=== PATIENT | female | born 1990 | race Caucasian/White ===

== ENCOUNTER 2021-01-29 09:16 | Inpatient (IN) ==
[2021-01-29] MEDS ORDERED: Lidocaine 1% 20 ML MDV INFILT PRN (09:21)
[2021-01-29] MEDS ORDERED: Azithromycin 500 MG in 0.9 % Sodium Chloride 250 ML IVPB PRN (09:21)
[2021-01-29] MEDS ORDERED: Metoclopramide 10 MG/2 ML VIAL IVP PRN (09:21)
[2021-01-29] MEDS ORDERED: *HR* Nalbuphine 10 MG/ML AMPUL IV PRN (09:21)
[2021-01-29] MEDS ORDERED: Naloxone 0.4 MG/ML INJ IVP PRN (09:21)
[2021-01-29] MEDS ORDERED: Famotidine 20 MG/2 ML VIAL IVP PRN (09:21)
[2021-01-29] MEDS ORDERED: Ondansetron 4 MG/2 ML VIAL IVP PRN (09:21)
[2021-01-29] MEDS ORDERED: Oxytocin 20 units/ LR 1000 mL 20 UNIT/1,000 ML BAG IVC SCH ×2 (09:30→16:54)
[2021-01-29] MEDS: Ringers Solution, Lactated 1,000 ML IVC SCH ×2 (10:06→11:10)
[2021-01-29] MEDS ORDERED: Ropivacaine/PF 0.2% 20 ML VIAL ONE (10:36)
[2021-01-29] MEDS ORDERED: *HR* FentaNYL (PF) 100 MCG/2 ML VIAL ONE (10:36)
[2021-01-29 10:39] LABS: Basophils % 0.3 %; Eosinophils # 0.1 K/mcL (0.0-0.6); Eosinophils % 0.6 %; Hematocrit 36.3 % (35.3-44.9); Hemoglobin 12.6 g/dL (11.5-15.4); Immature Granulocytes % 0.5 % (0-4); Lymphocytes # 1.9 K/mcL (0.6-4.6); Lymphocytes % 13.7 %; Mean Corpuscular HGB Conc 34.7 g/dL (31.6-35.5); Mean Corpuscular Hemoglobin 29.4 pg (28.0-33.3); Mean Corpuscular Volume 84.8 fL (83.0-100.0); Mean Platelet Volume 11.3 fL (9.4-12.4); Monocytes # 0.7 K/mcL (0.0-1.3); Monocytes % 4.7 %; Neutrophils # 11.1 K/mcL (1.6-8.9); Platelet Count 216 K/mcL (140-400); Red Blood Count 4.28 M/mcL (3.82-4.97); Red Cell Distribution Width 13.1 % (11.5-14.5); Segmented Neutrophils % 80.2 %; White Blood Count 13.9 K/mcL (4.3-11.1)
[2021-01-29] MEDS ORDERED: Epidural Premix (fent/bupiv) 110 ML EP ONE (10:54)
[2021-01-29 11:16] LABS: Influenza A PCR Negative (Negative); Influenza B PCR Negative (Negative); Resp. Syncytial Virus PCR Negative (Negative); SARS-CoV-2 by PCR (In House) Negative (Negative)
[2021-01-29 11:18] LABS: Creatinine,Urine 176 mg/dL
[2021-01-29] MEDS ORDERED: EPHEDrine 50 MG/ML VIAL IVP PRN (11:18)
[2021-01-29] MEDS ORDERED: Epidural Premix (fent/bupiv) 110 ML EP SCH (11:30)
[2021-01-29 11:31] LABS: Alanine Aminotransferase 13 Units/L (7-52); Aspartate Amino Transferase 22 Units/L (13-39); BUN/Creatinine Ratio 10 (6-26); Blood Urea Nitrogen 7 mg/dL (6-20); Lactate Dehydrogenase 202 Units/L (140-271); Uric Acid 5.8 mg/dL (2.3-7.6); eGFR For African Americans > 60 (> 60); eGFR For Non-African Americans > 60 (> 60)
[2021-01-29 11:32] LABS: Amphetamine Screen,Urine Negative ng/mL (Cutoff=1000); Barbiturate Screen,Urine Negative ng/mL (Cutoff=200); Benzodiazepines Screen,Urine Negative ng/mL (Cutoff=200); Cannabinoid Screen,Urine Negative ng/mL (Cutoff = 50); Cocaine Screen,Urine Negative ng/mL (Cutoff= 300); Opiate Screen,Urine Negative ng/mL (Cutoff=300); Phencyclidine Screen,Urine Negative ng/mL (Cutoff=25)
[2021-01-29] MEDS ORDERED: Oxytocin 20 units/ LR 1000 mL 20 UNIT/1,000 ML BAG IVC ONE (16:54)
[2021-01-29] MEDS ORDERED: Lanolin 7 G OINT...G. TP PRN (16:54)
[2021-01-29] MEDS ORDERED: Acetaminophen 325 MG TABLET PO PRN (16:54)
[2021-01-29] MEDS ORDERED: Benzocaine/Menthol 56 GM AEROSOL SPRAY TP PRN (16:54)
[2021-01-29] MEDS: Ibuprofen 600 MG TABLET PO PRN (19:43)
[2021-01-30] MEDS: Ibuprofen 600 MG TABLET PO PRN ×2 (05:05→11:42)
[2021-01-30 07:58] VITALS: PULSE 62
[2021-01-30 08:01] VITALS: BP 130/89; TEMP 98.1; O2SAT 98
[2021-01-30] MEDS ORDERED: Prenatal Vit/FA 1 EACH TABLET PO SCH (09:00)
[2021-01-30 13:00] LABS: Basophils % 0.2 %; Eosinophils # 0.1 K/mcL (0.0-0.6); Hematocrit 30.7 % (35.3-44.9); Immature Granulocytes % 0.5 % (0-4); Lymphocytes # 1.5 K/mcL (0.6-4.6); Lymphocytes % 12.5 %; Mean Corpuscular HGB Conc 33.9 g/dL (31.6-35.5); Mean Corpuscular Hemoglobin 29.6 pg (28.0-33.3); Mean Corpuscular Volume 87.5 fL (83.0-100.0); Mean Platelet Volume 11.6 fL (9.4-12.4); Monocytes # 0.6 K/mcL (0.0-1.3); Monocytes % 5.2 %; Neutrophils # 9.8 K/mcL (1.6-8.9); Platelet Count 200 K/mcL (140-400); Red Blood Count 3.51 M/mcL (3.82-4.97); Red Cell Distribution Width 13.2 % (11.5-14.5); Segmented Neutrophils % 80.6 %; White Blood Count 12.1 K/mcL (4.3-11.1)
[2021-01-30 13:04] LABS: Hemoglobin 10.4 g/dL (11.5-15.4)
== END 2021-01-30 16:22 | disposition home or self-care (01) | DRG 560 ==
LOC: 1NENULAB → 1NENUOBS 17:29
PROVIDERS: ADMIT Advanced Practice Midwife; ATTEND Advanced Practice Midwife

== ENCOUNTER 2021-12-06 09:28 | Observation (INO) ==
[2021-12-06] MEDS ORDERED: Ringers Solution, Lactated 1,000 ML IVC SCH (09:45)
[2021-12-06] MEDS ORDERED: Doxycycline 200 MG in 0.9 % Sodium Chloride 250 ML IVPB ONE (10:30)
[2021-12-06 10:39] LABS: Hematocrit 37.4 % (35.3-44.9); Hemoglobin 12.9 g/dL (11.5-15.4); Mean Corpuscular HGB Conc 34.5 g/dL (31.6-35.5); Mean Corpuscular Hemoglobin 28.8 pg (28.0-33.3); Mean Corpuscular Volume 83.5 fL (83.0-100.0); Mean Platelet Volume 10.2 fL (9.4-12.4); Platelet Count 260 K/mcL (140-400); Red Blood Count 4.48 M/mcL (3.82-4.97); Red Cell Distribution Width 12.4 % (11.5-14.5)
[2021-12-06] MEDS ORDERED: *HR* Propofol 200 MG/20 ML VIAL IVP ONE (12:51)
[2021-12-06] MEDS ORDERED: *HR* HYDROmorphone PF 0.5 MG/0.5 ML SYRINGE IVP PRN (12:51)
[2021-12-06] MEDS ORDERED: *HR* OxyCODONE Immed Rel 5 MG TABLET PO PRN (12:51)
[2021-12-06] MEDS ORDERED: *HR* Midazolam HCl 2 MG/2 ML VIAL ONE (12:51)
[2021-12-06] MEDS ORDERED: Ondansetron 4 MG/2 ML VIAL IVP PRN (12:51)
[2021-12-06] MEDS ORDERED: *HR* FentaNYL (PF) 100 MCG/2 ML VIAL ONE (12:51)
[2021-12-06] MEDS ORDERED: Ondansetron 4 MG/2 ML VIAL ONE (12:54)
[2021-12-06] MEDS ORDERED: Lidocaine -MPF 2% 5 ML VIAL ONE (12:54)
[2021-12-06] MEDS ORDERED: Ketorolac 30 MG/ML VIAL ONE (13:22)
[2021-12-06 14:23] VITALS: TEMP 97.1
[2021-12-06 14:53] VITALS: BP 121/71; PULSE 65; O2SAT 96
== END 2021-12-06 15:11 | disposition home or self-care (01) ==
LOC: 1NENUOBS 09:28 → SAMDAY 09:28 → 1NENUOBS 09:29
PROVIDERS: ADMIT Obstetrics & Gynecology; ATTEND Obstetrics & Gynecology